=== PATIENT | male | born 1970 | race American Indian/Alaskan Native ===

== ENCOUNTER 2020-05-23 12:00 | Emergency (ER) | payer SELFPAY ==
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
--- NOTE | 2020-05-23 13:35 | XRay Report ---
XR spine lumbosacral 2-3V INDICATION / CLINICAL INFORMATION: back pain. COMPARISON: None FINDINGS: 5 lumbar type vertebral bodies. Vertebral body height are preserved. Lumbar spinal alignment is maint ained. Lumbar disc spaces are within normal limits. SI joints are intact. Soft tissues are unremarkab le. IMPRESSION: Unremarkable lumbar spine radiograph. Signer Name: Yury Merida MD Signed: 05/23/2020 1:30 PM Workstation Name: [id number]
--- NOTE | 2020-05-23 14:57 | Ultrasound Report ---
ULTRASOUND SCROTUM INDICATION / CLINICAL INFORMATION: left testicular pain. COMPARISON: None available. FINDINGS -- RIGHT TESTIS: Size: 4.5 x 2.5 x 3.4 cm. - Appearance: No significant abnormality. - Cyst or Mass: None. - Color Doppler Flow: No significant abnormality. EPIDIDYMIS: No significant abnormality. HYDROCELE: Small. VARICOCELE: None demonstrated. FINDINGS -- LEFT TESTIS: Size: 4.8 x 2.3 x 3.5 cm. - Appearance: No significant abnormality. - Cyst or Mass: None. - Color Doppler Flow: No significant abnormality. EPIDIDYMIS: No significant abnormality. HYDROCELE: Small VARICOCELE: None demonstrated. ADDITIONAL FINDINGS: None. IMPRESSION: Small bilateral hydroceles, otherwise unremarkable sonographic evaluation of the testicles. No eviden ce of torsion. Signer Name: Yury Merida MD Signed: 05/23/2020 2:53 PM Workstation Name: [id number]
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
[2020-05-23 16:08] VITALS: BP 140/80
== END 2020-05-23 16:03 | disposition home or self-care (01) ==
LOC: ED 12:00
DX: S39.012A Strain of muscle, fascia and tendon of lower back, initial encounter (principal); N50.819 Testicular pain, unspecified; X58.XXXA Exposure to other specified factors, initial encounter; Y93.89 Activity, other specified; Y92.89 Other specified places as the place of occurrence of the external cause; Y99.8 Other external cause status
CPT/HCPCS: 72100; 93975